=== PATIENT | male | born 1990 | race Caucasian/White ===

== ENCOUNTER 2017-06-11 20:49 | Emergency (ER) | payer OTHER ==
[~2017-06-11] VITALS: Ht 180.3 cm; Wt 95.4 kg
[2017-06-11] MEDS ORDERED: HEPATITIS B VACCINE/PF 20MCG/ML INJ IM-VACC ONE (21:30)
[2017-06-11 21:53] LABS: HIV 1&2 ANTIBODY SCREEN Nonreactive (Nonreactive); HIV-1 p24 ANTIGEN Nonreactive (Nonreactive)
[2017-06-11 22:22] VITALS: BP 124/71
[2017-06-13 09:46] LABS: HEP B SURF. AB 6.8 mIU/mL (0.0-10.0)
[2017-06-13 10:25] LABS: HEPATITIS C VIRUS ANTIBODY Nonreactive (Nonreactive)
== END 2017-06-11 22:23 | disposition home or self-care (01) ==
LOC: ED 21:57
DX: R19.5 Other fecal abnormalities (principal)
CPT/HCPCS: 36415; 86703; 86705; 86706; 86803; 87340; 87899; 90746; 99284; G0435